=== PATIENT | male | born 1940 | race African-American/Black ===

== ENCOUNTER 2017-07-20 10:33 | Emergency (ER) | payer MEDICARE ==
--- NOTE | 2017-07-20 13:08 | CT ---
CT BRAIN: 07/20/2017 PROVIDED CLINICAL HISTORY: Headache, status post injury. COMPARISON: None. FINDINGS: The ventricular system appears normal in size and morphology. There is no evidence for intracranial hemorrhage or mass effect. There is mild right frontal scalp swelling without evidence for subjacent skull fracture. IMPRESSION: No evidence for intracranial hemorrhage or skull fracture. POS: OFF
--- NOTE | 2017-07-20 13:10 | CT ---
CT CERVICAL SPINE: 07/20/2017 PROVIDED CLINICAL HISTORY: Pain status post fall. FINDINGS: There is no evidence for fracture or traumatic subluxation. Advanced multilevel cervical degenerativ e changes are seen. No prevertebral soft tissue swelling is evident. The visualized lung apices are free of significant opacity. There is mild to moderate distention of the thoracic esophagus with ai r and articulate matter. Vascular calcifications are seen. IMPRESSION: 1. No evidence for fracture or traumatic subluxation. 2. Distention of the visualized thoracic esophagus by gas and articulate matter, potentially reflect ing gastroesophageal reflux or distal obstruction. Consider nonemergent esophagram, as clinically in dicated. POS: OFF
[2017-07-20] MEDS ORDERED: Acetaminophen 500 MG TAB ONE (13:37)
== END 2017-07-20 13:44 | disposition home or self-care (01) ==
LOC: ERS 10:33
DX: S09.90XA Unspecified injury of head, initial encounter (principal); S13.4XXA Sprain of ligaments of cervical spine, initial encounter; I10 Essential (primary) hypertension; E11.9 Type 2 diabetes mellitus without complications; F17.210 Nicotine dependence, cigarettes, uncomplicated; Z79.84 Long term (current) use of oral hypoglycemic drugs; Z79.899 Other long term (current) drug therapy; W19.XXXA Unspecified fall, initial encounter
CPT/HCPCS: 70450; 72125; 99406

== ENCOUNTER 2021-02-11 09:02 | Outpatient (CLI) | payer MEDICARE, MEDICAID | END 2021-02-11 09:03 | disposition home or self-care (01) | LOC: BICMRI 09:02 | PROVIDERS: ATTEND Internal Medicine Addiction Medicine | DX: M47.26 Other spondylosis with radiculopathy, lumbar region (principal) | CPT/HCPCS: 72148 ==

== ENCOUNTER 2021-04-06 12:11 | Inpatient (IN) | payer MEDICARE, OTHER ==
[2021-04-06] MEDS ORDERED: Iopamidol-370 76% 500 ML 1 ML ONE (13:25)
[2021-04-06 13:27] LABS: ALT (SGPT) 12 U/L (8-55); AST (SGOT) 16 U/L (5-34); Albumin 3.5 g/dL (3.4-4.8); Alkaline Phosphatase 130 U/L (40-110); Anion Gap 16 mmol/L (10-20); BUN (Urea Nitrogen) 19 mg/dL (8.4-25.7); Bilirubin, Total 0.9 mg/dL (0.2-1.2); Calc. Creatinine Clearance 0 mL/min (70-130); Calcium 9.5 mg/dL (7.8-10.44); Carbon Dioxide 23 mmol/L (23-31); Chloride 95 mmol/L (98-107); Globulin 3.5 g/dL (2.4-3.5); Potassium 3.5 mmol/L (3.5-5.1); Sodium 130 mmol/L (136-145)
[2021-04-06 13:34] LABS: Glucose 700 mg/dL (83-110)
[2021-04-06 13:48] LABS: CKMB 2.2 ng/mL (0-6.6)
[2021-04-06] MEDS ORDERED: Aspirin Chewable 81 MG TAB ONE (13:58)
[2021-04-06 14:01] LABS: #Lymphocytes 1.1 thou/uL (1.20-3.40); #Monocytes 0.7 thou/uL (0.11-0.59); #Neutrophils 5.3 thou/uL (1.40-6.50); %Basophils 0.2 % (0.0-1.0); %Eosinophils 0.5 % (0.0-10.0); %Lymphocytes 14.8 % (21.0-51.0); %Monocytes 9.5 % (0.0-10.0); Hemoglobin 6.1 g/dL (14.0-18.0); Hypochromia SLIGHT = 6-15 cells (100X) (0-5/hpf); MDiff Complete? YES; Mean Corpuscular HGB CONC 28.1 g/dL (32.0-36.0); Mean Corpuscular Hemoglobin 19.5 pg (27.0-31.0); Mean Corpuscular Volume 69.5 fL (78.0-98.0); Mean Platelet Volume 7.2 fL (7.4-10.4); Microcytosis MODERATE=15-30 cells (100X) (0-5/hpf); Ovalocytes SLIGHT = 2-5 cells (100X) (0-1/hpf); Platelet Count 208 thou/uL (130-400); Platelet Morphology Comment Appears Adequate; Polychromasia SLIGHT = 2-3 cells (100X) (0-2/hpf); RBC Distribution Width 19.7 % (11.5-14.5); Red Blood Cell (RBC) Count 3.12 mill/uL (4.70-6.10); White Blood Cell (WBC) Count 7.1 thou/uL (4.8-10.8)
[2021-04-06 14:43] LABS: Bilirubin Negative (Negative); Blood, Urine Negative (Negative); Clarity Clear (Clear); Glucose, Urine (Dipstick) Greater than 1000 mg/dL (Negative); Ketone, Urine Negative (Negative); Leukocyte 75 Leu/uL (Negative); Nitrite 1+ (Negative); Protein, Urine (Dipstick) Negative (Neg-Trace); RBC/HPF 0-3 HPF (0-3); Specific Gravity, Urine 1.025 (1.002-1.036); Squamous Epithelial 0-3 HPF (0-3); Urobilinogen Normal mg/dL (Less than 2); WBC/HPF 0-3 HPF (0-3)
[2021-04-06 14:44] LABS: Bacteria/HPF 1+ HPF (None Seen)
[2021-04-06] MEDS ORDERED: Acetaminophen 325 MG TAB PO PRN (15:58)
[2021-04-06] MEDS ORDERED: Nicotine 14 MG PATCH TD SCH (16:00)
[2021-04-06] MEDS ORDERED: Dextrose 5% in Water 1,000 ML IV PRN (16:05)
[2021-04-06] MEDS ORDERED: Dextrose 50% Abboject 50 ML SYRINGE SLOW IVP PRN (16:05)
[2021-04-06] MEDS ORDERED: Pantoprazole 40 MG VIAL IVP SCH (16:15)
[2021-04-06] MEDS ORDERED: Lactated Ringer's 1,000 ML IV SCH (16:45)
[2021-04-06] MEDS ORDERED: Clotrimazole 1 % Cream 30 GM TUBE TOP PRN ×2 (16:51→18:15)
[2021-04-06 16:58] LABS: Iron 14 ug/dL (65-175); Iron Binding Capacity, Total 451 mcg/dL (261-462)
[2021-04-06] MEDS ORDERED: Meropenem 1 GM in Sodium Chloride 0.9% 100 ML IVPB SCH ×2 (17:00→21:00)
[2021-04-06 17:12] LABS: INR-International Normal Ratio 1.2; PTT 28.8 sec (22.9-36.1); Prothrombin Time 15.3 sec (12.0-14.7)
[2021-04-06 17:15] LABS: Troponin I 0.232 ng/mL (< 0.028)
[2021-04-06] MEDS: HumaLOG 300 UNITS/3 ML VIAL SC PRN ×2 (17:51→22:41)
[2021-04-06 17:52] LABS: Hemoglobin A1c Greater than 14.0 % (4.0-6.0)
[2021-04-06 18:00] LABS: Cardiac Risk 2.1 (Less than 4.5)
[2021-04-06] MEDS ORDERED: Piperacillin/Tazobactam 2.25 GM in Sodium Chloride 0.9% 100 ML IVPB SCH (18:00)
[2021-04-06 19:40] LABS: Troponin I 0.234 ng/mL (< 0.028)
[2021-04-07 03:39] LABS: Anion Gap 10 mmol/L (10-20); BUN (Urea Nitrogen) 17 mg/dL (8.4-25.7); Calc. Creatinine Clearance 47 mL/min (70-130); Carbon Dioxide 25 mmol/L (23-31); Chloride 102 mmol/L (98-107); Glucose 279 mg/dL (83-110); Potassium 3.3 mmol/L (3.5-5.1); Sodium 134 mmol/L (136-145)
[2021-04-07 03:54] LABS: #Lymphocytes 1.3 thou/uL (1.20-3.40); #Monocytes 0.6 thou/uL (0.11-0.59); #Neutrophils 3.9 thou/uL (1.40-6.50); %Basophils 0.4 % (0.0-1.0); %Eosinophils 0.3 % (0.0-10.0); %Lymphocytes 21.7 % (21.0-51.0); %Neutrophils 66.6 % (42.0-75.0); Anisocytosis SLIGHT = 6-15 cells (100X) (0-5/hpf); Hemoglobin 7.6 g/dL (14.0-18.0); Hypochromia SLIGHT = 6-15 cells (100X) (0-5/hpf); Large Platelets SLIGHT; MDiff Complete? YES; Mean Corpuscular HGB CONC 29.8 g/dL (32.0-36.0); Mean Corpuscular Hemoglobin 21.9 pg (27.0-31.0); Mean Corpuscular Volume 73.6 fL (78.0-98.0); Mean Platelet Volume 7.1 fL (7.4-10.4); Microcytosis SLIGHT = 6-15 cells (100X) (0-5/hpf); Platelet Count 179 thou/uL (130-400); Platelet Morphology Comment Appears Adequate; RBC Distribution Width 20.7 % (11.5-14.5); Red Blood Cell (RBC) Count 3.44 mill/uL (4.70-6.10); White Blood Cell (WBC) Count 5.8 thou/uL (4.8-10.8)
[2021-04-07] MEDS ORDERED: Meropenem 500 MG in Sodium Chloride 0.9% 100 ML IVPB SCH (05:00)
[2021-04-07] MEDS ORDERED: Potassium Chloride 20 MEQ TAB PO SCH (06:15)
[2021-04-07] MEDS: HumaLOG 300 UNITS/3 ML VIAL SC PRN ×4 (06:21→20:45)
[2021-04-07 06:45] LABS: Magnesium 1.9 mg/dL (1.6-2.6); Phosphorus 2.8 mg/dL (2.3-4.7)
[2021-04-07] MEDS: Atorvastatin Calcium 10 MG TAB PO SCH (08:35)
[2021-04-07] MEDS: Pantoprazole 40 MG VIAL IVP SCH ×2 (08:35→20:45)
[2021-04-07] MEDS: metFORMIN 500 MG TAB PO SCH ×2 (08:35→16:32)
[2021-04-07] MEDS ORDERED: FLU VACC QS2021-22(65YR UP)/PF 240 MCG/0.7 ML SYRINGE IM ONE (09:00)
[2021-04-07] MEDS ORDERED: hydrOXYzine 25 MG TAB PO PRN (09:01)
[2021-04-07 11:07] LABS: SARS-CoV-2 PCR by NAA Not Detected (NotDetected)
[2021-04-07] MEDS ORDERED: Iopamidol 370 76% 100 ML VIAL ONE (13:49)
[2021-04-07] MEDS: Lantus 1000 UNITS/10 ML VIAL SC SCH (14:24)
[2021-04-07 14:47] LABS: Anion Gap 12 mmol/L (10-20); BUN (Urea Nitrogen) 15 mg/dL (8.4-25.7); Calc. Creatinine Clearance 46 mL/min (70-130); Calcium 8.8 mg/dL (7.8-10.44); Carbon Dioxide 23 mmol/L (23-31); Chloride 103 mmol/L (98-107); Glucose 295 mg/dL (83-110); Potassium 3.7 mmol/L (3.5-5.1); Sodium 134 mmol/L (136-145)
[2021-04-07] MEDS ORDERED: Ferrous Gluconate 324 MG TAB PO SCH (16:00)
[2021-04-07] MEDS: Ferrous Gluconate 324 MG TAB PO SCH (16:08)
[2021-04-07] MEDS: Meropenem 1 GM in Sodium Chloride 0.9% 100 ML IVPB SCH (17:31)
[2021-04-07] MEDS: Nitroglycerin 2% Ointment 1 INCH/1 GM Packet TOP SCH ×2 (17:46→23:56)
[2021-04-08 04:58] LABS: Hemoglobin 7.4 g/dL (14.0-18.0); Mean Corpuscular HGB CONC 29.7 g/dL (32.0-36.0); Mean Corpuscular Hemoglobin 22.1 pg (27.0-31.0); Mean Corpuscular Volume 74.5 fL (78.0-98.0); Platelet Count 166 thou/uL (130-400); RBC Distribution Width 20.3 % (11.5-14.5); Red Blood Cell (RBC) Count 3.35 mill/uL (4.70-6.10); White Blood Cell (WBC) Count 6.4 thou/uL (4.8-10.8)
[2021-04-08 05:04] LABS: Anion Gap 12 mmol/L (10-20); BUN (Urea Nitrogen) 15 mg/dL (8.4-25.7); Calc. Creatinine Clearance 47 mL/min (70-130); Calcium 8.3 mg/dL (7.8-10.44); Carbon Dioxide 23 mmol/L (23-31); Chloride 103 mmol/L (98-107); Glucose 241 mg/dL (83-110); Potassium 3.8 mmol/L (3.5-5.1); Sodium 134 mmol/L (136-145)
[2021-04-08] MEDS: Nitroglycerin 2% Ointment 1 INCH/1 GM Packet TOP SCH ×2 (06:11→12:04)
[2021-04-08] MEDS: Meropenem 1 GM in Sodium Chloride 0.9% 100 ML IVPB SCH (06:11)
[2021-04-08] MEDS: HumaLOG 300 UNITS/3 ML VIAL SC PRN ×2 (06:25→17:06)
[2021-04-08 06:35] LABS: #Eosinphils 0.1 thou/uL (0.0-0.7); #Lymphocytes 1.1 thou/uL (1.20-3.40); #Monocytes 0.8 thou/uL (0.11-0.59); #Neutrophils 4.6 thou/uL (1.40-6.50); %Basophils 0.3 % (0.0-1.0); %Lymphocytes 16.3 % (21.0-51.0); %Monocytes 11.7 % (0.0-10.0); %Neutrophils 70.7 % (42.0-75.0)
[2021-04-08 06:36] LABS: Anisocytosis SLIGHT = 6-15 cells (100X) (0-5/hpf); MDiff Complete? YES
[2021-04-08] MEDS ORDERED: Ketamine 50 MG/ML (10ML VIAL) ONE (09:01)
[2021-04-08] MEDS ORDERED: Lidocaine 1% PF 5 ML VIAL ONE (09:10)
[2021-04-08] MEDS ORDERED: PROPOFOL 200 MG/20 ML VIAL ONE (09:10)
[2021-04-08] MEDS: Atorvastatin Calcium 10 MG TAB PO SCH (10:02)
[2021-04-08] MEDS: metFORMIN 500 MG TAB PO SCH ×2 (10:02→17:06)
[2021-04-08] MEDS: Pantoprazole 40 MG VIAL IVP SCH ×2 (10:03→20:33)
[2021-04-08] MEDS: Lantus 1000 UNITS/10 ML VIAL SC SCH ×2 (10:10→20:34)
[2021-04-08] MEDS ORDERED: Nitroglycerin 2% Ointment 1 INCH/1 GM Packet TOP PRN (12:53)
[2021-04-08] MEDS ORDERED: Iron Sucrose Complex 200 MG in Sodium Chloride 0.9% 100 ML IVPB SCH (14:00)
[2021-04-08] MEDS ORDERED: Cefdinir 300 MG CAP PO SCH (14:00)
[2021-04-08] MEDS ORDERED: Iron, Sodium Ferric Gluconate 250 MG in Sodium Chloride 0.9% 100 ML IVPB SCH (14:00)
[2021-04-08] MEDS ORDERED: Iron, Sodium Ferric Gluconate 250 MG in Sodium Chloride 0.9% 250 ML 250 ML IVPB SCH (14:15)
[2021-04-08] MEDS: Cefdinir 300 MG CAP PO SCH (20:33)
[2021-04-09] MEDS ORDERED: Furosemide 20 MG/2 ML VIAL SLOW IVP SCH (00:15)
[2021-04-09 04:55] LABS: Mean Corpuscular HGB CONC 29.3 g/dL (32.0-36.0); Mean Corpuscular Hemoglobin 21.8 pg (27.0-31.0); Mean Corpuscular Volume 74.3 fL (78.0-98.0); Mean Platelet Volume 6.5 fL (7.4-10.4); Platelet Count 167 thou/uL (130-400); Red Blood Cell (RBC) Count 3.68 mill/uL (4.70-6.10); White Blood Cell (WBC) Count 7.2 thou/uL (4.8-10.8)
[2021-04-09 05:12] LABS: Anion Gap 13 mmol/L (10-20); BUN (Urea Nitrogen) 13 mg/dL (8.4-25.7); Calc. Creatinine Clearance 55 mL/min (70-130); Calcium 8.3 mg/dL (7.8-10.44); Carbon Dioxide 24 mmol/L (23-31); Chloride 103 mmol/L (98-107); Glucose 237 mg/dL (83-110); Potassium 3.8 mmol/L (3.5-5.1); Sodium 136 mmol/L (136-145)
[2021-04-09 05:26] LABS: #Eosinphils 0.1 thou/uL (0.0-0.7); #Lymphocytes 1.2 thou/uL (1.20-3.40); #Monocytes 0.9 thou/uL (0.11-0.59); #Neutrophils 5.1 thou/uL (1.40-6.50); %Basophils 0.1 % (0.0-1.0); %Lymphocytes 15.9 % (21.0-51.0); %Monocytes 12.5 % (0.0-10.0); %Neutrophils 70.5 % (42.0-75.0); Anisocytosis SLIGHT = 6-15 cells (100X) (0-5/hpf); Hypochromia SLIGHT = 6-15 cells (100X) (0-5/hpf); MDiff Complete? YES; Microcytosis SLIGHT = 6-15 cells (100X) (0-5/hpf)
[2021-04-09] MEDS: HumaLOG 300 UNITS/3 ML VIAL SC PRN ×3 (06:03→20:39)
[2021-04-09] MEDS: Aspirin 81 mg Enteric Coated Tablet PO SCH (08:40)
[2021-04-09] MEDS: Cefdinir 300 MG CAP PO SCH ×2 (08:40→20:38)
[2021-04-09] MEDS: Atorvastatin Calcium 10 MG TAB PO SCH (08:41)
[2021-04-09] MEDS: Pantoprazole 40 MG VIAL IVP SCH ×2 (08:41→20:38)
[2021-04-09] MEDS: metFORMIN 500 MG TAB PO SCH ×2 (08:41→16:18)
[2021-04-09] MEDS: Carvedilol 3.125 MG TAB PO SCH ×2 (08:41→16:18)
[2021-04-09] MEDS: Ferrous Gluconate 324 MG TAB PO SCH (11:17)
[2021-04-09 13:16] VITALS: BMI 21.4
[2021-04-09] MEDS: Lantus 1000 UNITS/10 ML VIAL SC SCH (20:39)
[2021-04-10 04:28] LABS: #Eosinphils 0.1 thou/uL (0.0-0.7); #Lymphocytes 1.4 thou/uL (1.20-3.40); #Monocytes 0.7 thou/uL (0.11-0.59); #Neutrophils 3.8 thou/uL (1.40-6.50); %Basophils 0.8 % (0.0-1.0); %Eosinophils 1.6 % (0.0-10.0); %Lymphocytes 22.5 % (21.0-51.0); %Monocytes 11.7 % (0.0-10.0); %Neutrophils 63.4 % (42.0-75.0); Hemoglobin 7.3 g/dL (14.0-18.0); Mean Corpuscular HGB CONC 29.3 g/dL (32.0-36.0); Mean Corpuscular Hemoglobin 21.9 pg (27.0-31.0); Mean Corpuscular Volume 74.8 fL (78.0-98.0); Mean Platelet Volume 6.5 fL (7.4-10.4); Platelet Count 151 thou/uL (130-400); RBC Distribution Width 21.1 % (11.5-14.5); Red Blood Cell (RBC) Count 3.34 mill/uL (4.70-6.10); White Blood Cell (WBC) Count 6.1 thou/uL (4.8-10.8)
[2021-04-10 04:46] LABS: Anion Gap 9 mmol/L (10-20); BUN (Urea Nitrogen) 10 mg/dL (8.4-25.7); Calc. Creatinine Clearance 52 mL/min (70-130); Calcium 8.7 mg/dL (7.8-10.44); Carbon Dioxide 25 mmol/L (23-31); Chloride 105 mmol/L (98-107); Glucose 147 mg/dL (83-110); Potassium 3.4 mmol/L (3.5-5.1); Sodium 136 mmol/L (136-145)
[2021-04-10] MEDS ORDERED: Potassium Chloride 20 MEQ TAB PO SCH (06:30)
[2021-04-10 06:46] LABS: Magnesium 1.8 mg/dL (1.6-2.6)
[2021-04-10] MEDS: Aspirin 81 mg Enteric Coated Tablet PO SCH (09:20)
[2021-04-10] MEDS: Cefdinir 300 MG CAP PO SCH ×2 (09:20→21:00)
[2021-04-10] MEDS: metFORMIN 500 MG TAB PO SCH ×2 (09:20→18:32)
[2021-04-10] MEDS: Carvedilol 3.125 MG TAB PO SCH ×2 (09:20→18:32)
[2021-04-10] MEDS: Atorvastatin Calcium 10 MG TAB PO SCH (09:21)
[2021-04-10] MEDS: Pantoprazole 40 MG VIAL IVP SCH ×2 (09:21→21:04)
[2021-04-10] MEDS ORDERED: Furosemide 20 MG/2 ML VIAL SLOW IVP SCH (11:30)
[2021-04-10] MEDS: HumaLOG 300 UNITS/3 ML VIAL SC PRN ×2 (11:49→18:33)
[2021-04-10] MEDS: Lantus 1000 UNITS/10 ML VIAL SC SCH (21:04)
[2021-04-11 05:06] LABS: Anion Gap 12 mmol/L (10-20); BUN (Urea Nitrogen) 14 mg/dL (8.4-25.7); Calc. Creatinine Clearance 57 mL/min (70-130); Calcium 8.7 mg/dL (7.8-10.44); Carbon Dioxide 23 mmol/L (23-31); Chloride 104 mmol/L (98-107); Glucose 170 mg/dL (83-110); Potassium 4.1 mmol/L (3.5-5.1); Sodium 135 mmol/L (136-145)
[2021-04-11 05:53] LABS: Anisocytosis MODERATE=16-30 cells (100X) (0-5/hpf); Burr Cells SLIGHT = 2-5 cells (100X) (0-1/hpf); Eosinophils 2 % (0-10); Hemoglobin 7.5 g/dL (14.0-18.0); Hypochromia MODERATE=16-30 cells (100X) (0-5/hpf); Lymphocytes 18 % (21-51); MDiff Complete? YES; Mean Corpuscular HGB CONC 29.9 g/dL (32.0-36.0); Mean Corpuscular Hemoglobin 22.6 pg (27.0-31.0); Mean Corpuscular Volume 75.7 fL (78.0-98.0); Mean Platelet Volume 9.3 fL (7.4-10.4); Monocytes 7 % (0-10); Neutrophil 72 % (42-75); Platelet Count 162 thou/uL (130-400); Platelet Morphology Comment Appears Adequate; Polychromasia MODERATE = 3-4 cells (100X) (0-2/hpf); RBC Distribution Width 22.1 % (11.5-14.5); Red Blood Cell (RBC) Count 3.33 mill/uL (4.70-6.10); Schistocytes SLIGHT = 2-5 cells (100X) (0-1/hpf); Target Cells SLIGHT = 2-5 cells (100X) (0-1/hpf); White Blood Cell (WBC) Count 6.3 thou/uL (4.8-10.8)
[2021-04-11] MEDS: Pantoprazole 40 MG VIAL IVP SCH (08:39)
[2021-04-11] MEDS: Carvedilol 3.125 MG TAB PO SCH (08:39)
[2021-04-11] MEDS: metFORMIN 500 MG TAB PO SCH (08:40)
[2021-04-11] MEDS: Cefdinir 300 MG CAP PO SCH (08:40)
[2021-04-11] MEDS: Aspirin 81 mg Enteric Coated Tablet PO SCH (08:40)
[2021-04-11] MEDS: Atorvastatin Calcium 10 MG TAB PO SCH (08:40)
[2021-04-11] MEDS ORDERED: Furosemide 20 MG TAB PO SCH (09:00)
[2021-04-11] MEDS: Ferrous Gluconate 324 MG TAB PO SCH (12:05)
[2021-04-11 15:52] VITALS: BP 111/65; TEMP 98.1
== END 2021-04-11 16:31 | disposition home health service (06) | DRG 377 ==
LOC: ERS 12:11 → ERHOLD 14:13 → 2NO 15:47
PROVIDERS: ADMIT Family Medicine; ATTEND Family Medicine
PROC: 30233N1 Transfusion of Nonautologous Red Blood Cells into Peripheral Vein, Percutaneous Approach (ICD-10-PCS; 2021-04-06)
PROC: 0DJ08ZZ Inspection of Upper Intestinal Tract, Via Natural or Artificial Opening Endoscopic (ICD-10-PCS; principal; 2021-04-08)
DX: K31.811 Angiodysplasia of stomach and duodenum with bleeding (principal); J96.01 Acute respiratory failure with hypoxia; I21.4 Non-ST elevation (NSTEMI) myocardial infarction; I50.21 Acute systolic (congestive) heart failure; N39.0 Urinary tract infection, site not specified; Z20.822 Contact with and (suspected) exposure to COVID-19; I11.0 Hypertensive heart disease with heart failure; E11.9 Type 2 diabetes mellitus without complications; N48.1 Balanitis; D50.0 Iron deficiency anemia secondary to blood loss (chronic); F41.0 Panic disorder [episodic paroxysmal anxiety]; R16.0 Hepatomegaly, not elsewhere classified; R91.8 Other nonspecific abnormal finding of lung field; F17.210 Nicotine dependence, cigarettes, uncomplicated; R59.0 Localized enlarged lymph nodes; E11.65 Type 2 diabetes mellitus with hyperglycemia; E78.5 Hyperlipidemia, unspecified; E87.6 Hypokalemia; E83.42 Hypomagnesemia; Z88.7 Allergy status to serum and vaccine; Z79.84 Long term (current) use of oral hypoglycemic drugs
CPT/HCPCS: 36415; 36416; 36430; 71045; 71275; 74170; 74174; 74183; 80048; 80053; 80061; 81003; 81015; 82010; 82553; 82728; 83036; 83540; 83550; 83690; 83735; 84100; 84145; 84443; 84484; 85025; 85610; 85730; 86850; 86900; 86901; 87077; 87086; 87186; 93005; 93306; 94640; 94760; C9113; J1815; J1940; J2185; J2704; J2916; J3475; J3490; J7050; J7120; J7620; P9016; Q9967; U0003; U0005

== ENCOUNTER 2021-05-21 14:37 | Outpatient (CLI) | payer MEDICARE, OTHER ==
[2021-05-22 19:32] LABS: SARS-CoV-2 PCR by NAA Not Detected (NotDetected)
== END 2021-05-21 14:38 | disposition home or self-care (01) ==
LOC: LABBT 14:37
PROVIDERS: ATTEND Internal Medicine
DX: Z01.812 Encounter for preprocedural laboratory examination (principal); Z20.822 Contact with and (suspected) exposure to COVID-19
CPT/HCPCS: U0003; U0005

== ENCOUNTER 2021-05-26 08:43 | Day surgery (SDC) | payer MEDICARE, MEDICAID ==
[2021-05-22 14:12] VITALS: BMI 21.0
[2021-05-26] MEDS ORDERED: Albuterol Sulfate 2.5 mg/3 ml Neb ONE ×2 (11:14→13:03)
[2021-05-26] MEDS ORDERED: PROPOFOL 200 MG/20 ML VIAL ONE (12:15)
[2021-05-26] MEDS ORDERED: Lidocaine 1% PF 5 ML VIAL ONE (12:15)
== END 2021-05-26 12:46 | disposition home or self-care (01) ==
LOC: SDC 08:43
PROVIDERS: ATTEND Internal Medicine
PROC: 0DJD8ZZ Inspection of Lower Intestinal Tract, Via Natural or Artificial Opening Endoscopic (ICD-10-PCS; principal; 2021-05-26)
DX: D50.9 Iron deficiency anemia, unspecified (principal); Z79.4 Long term (current) use of insulin; Z79.82 Long term (current) use of aspirin; Z79.84 Long term (current) use of oral hypoglycemic drugs; Z79.899 Other long term (current) drug therapy; Z88.7 Allergy status to serum and vaccine
CPT/HCPCS: 36416; J2704; J7611

== ENCOUNTER 2021-07-17 09:11 | Day surgery (SDC) | payer MEDICARE, OTHER ==
[~2021-07-17 09:11] MED LIST: Acetaminophen 500 MG TAB PO SCH; Iron Sucrose Complex 500 MG in Sodium Chloride 0.9% 250 ML 250 ML IVPB SCH
[2021-07-17] MEDS ORDERED: Acetaminophen 500 MG TAB ONE ×2 (09:41)
[2021-07-17 10:24] VITALS: TEMP 97.7
[2021-07-17 11:49] VITALS: BP 116/56
== END 2021-07-17 11:50 | disposition home or self-care (01) ==
LOC: ONC/OP 09:11
PROVIDERS: ATTEND Student in an Organized Health Care Education/Training Program
DX: K90.89 Other intestinal malabsorption (principal); Z88.7 Allergy status to serum and vaccine
CPT/HCPCS: 96365; J1756; J7050

== ENCOUNTER 2021-10-12 12:57 | Emergency (ER) | payer MEDICARE, OTHER ==
[2021-10-12 13:48] LABS: Hemoglobin 7.4 g/dL (14.0-18.0); Mean Corpuscular HGB CONC 29.4 g/dL (32.0-36.0); Mean Corpuscular Hemoglobin 25.5 pg (27.0-31.0); Mean Corpuscular Volume 86.8 fL (78.0-98.0); Mean Platelet Volume 8.2 fL (7.4-10.4); Platelet Count 202 thou/uL (130-400); Red Blood Cell (RBC) Count 2.91 mill/uL (4.70-6.10)
[2021-10-12 13:49] LABS: #Eosinphils 0.1 thou/uL (0.0-0.7); #Lymphocytes 1.2 thou/uL (1.20-3.40); #Monocytes 0.6 thou/uL (0.11-0.59); #Neutrophils 4.1 thou/uL (1.40-6.50); %Basophils 0.7 % (0.0-1.0); %Eosinophils 1.8 % (0.0-10.0); %Lymphocytes 19.5 % (21.0-51.0); %Monocytes 9.9 % (0.0-10.0); %Neutrophils 68.2 % (42.0-75.0)
[2021-10-12 14:00] LABS: ALT (SGPT) 9 U/L (8-55); AST (SGOT) 14 U/L (5-34); Albumin 3.5 g/dL (3.4-4.8); Alkaline Phosphatase 92 U/L (40-110); Anion Gap 12 mmol/L (10-20); BUN (Urea Nitrogen) 32 mg/dL (8.4-25.7); Bilirubin, Total 0.5 mg/dL (0.2-1.2); Calc. Creatinine Clearance 0 mL/min (70-130); Calcium 8.8 mg/dL (7.8-10.44); Carbon Dioxide 24 mmol/L (23-31); Chloride 106 mmol/L (98-107); Globulin 3.1 g/dL (2.4-3.5); Glucose 212 mg/dL (83-110); Protein, Total 6.6 g/dL (5.8-8.1); Sodium 138 mmol/L (136-145)
[2021-10-12 14:11] LABS: Hypochromia SLIGHT = 6-15 cells (100X) (0-5/hpf); MDiff Complete? YES; Platelet Morphology Comment Appears Adequate; Polychromasia SLIGHT = 2-3 cells (100X) (0-2/hpf)
== END 2021-10-12 18:03 | disposition home or self-care (01) ==
LOC: ERS 12:57
DX: D64.9 Anemia, unspecified (principal); K92.2 Gastrointestinal hemorrhage, unspecified; E11.9 Type 2 diabetes mellitus without complications; E78.5 Hyperlipidemia, unspecified; I10 Essential (primary) hypertension; F17.210 Nicotine dependence, cigarettes, uncomplicated
CPT/HCPCS: 36430; 80053; 85025; 86850; 86900; 86901; 86920; P9016; 36415; 82274; 99284

== ENCOUNTER 2022-02-04 07:53 | Outpatient (CLI) | payer OTHER ==
[2022-02-04] MEDS ORDERED: Magnevist 469MG/ML 20 ML VIAL ONE (09:08)
== END 2022-02-04 07:54 | disposition home or self-care (01) ==
LOC: BICMRI 07:53
PROVIDERS: ATTEND Student in an Organized Health Care Education/Training Program
DX: K76.89 Other specified diseases of liver (principal)
CPT/HCPCS: 74183; 82565; A9579

== ENCOUNTER 2022-09-11 07:06 | Inpatient (IN) | payer OTHER ==
[2022-09-11] MEDS ORDERED: Pantoprazole 40 MG VIAL ONE (07:55)
[2022-09-11 08:12] LABS: #Eosinphils 0.1 thou/uL (0.0-0.7); #Monocytes 0.7 thou/uL (0.11-0.59); #Neutrophils 4.5 thou/uL (1.40-6.50); %Basophils 0.7 % (0.0-1.0); %Eosinophils 1.1 % (0.0-10.0); %Lymphocytes 12.6 % (21.0-51.0); %Monocytes 10.8 % (0.0-10.0); %Neutrophils 74.3 % (42.0-75.0); Hemoglobin 4.4 g/dL (14.0-18.0); Mean Corpuscular HGB CONC 25.1 g/dL (32.0-36.0); Mean Corpuscular Hemoglobin 17.1 pg (27.0-31.0); Mean Corpuscular Volume 67.8 fl (78.0-98.0); Mean Platelet Volume 9.7 fL (7.4-10.4); Platelet Count 208 10x3/uL (130-400); RBC Distribution Width 20.9 % (11.5-14.5); Red Blood Cell (RBC) Count 2.58 mill/uL (4.70-6.10); White Blood Cell (WBC) Count 6.1 10x3/uL (4.8-10.8)
[2022-09-11 08:55] LABS: Anisocytosis MODERATE=16-30 cells HPF (0-5); CellaVision Operator ID LAB.NR; Hypochromia MODERATE=16-30 cells HPF (0-5); Large Platelets 18.1 % (0-5); Macrocytosis SLIGHT = 6-15 cells HPF (0-5); Platelet Morphology Comment Platelets Normal; Polychromasia SLIGHT = 2-3 cells HPF (0-2)
[2022-09-11 08:56] LABS: ALT (SGPT) 7 U/L (8-55); AST (SGOT) 10 U/L (5-34); Albumin 3.7 g/dL (3.4-4.8); Alkaline Phosphatase 63 U/L (40-110); Anion Gap 12 mmol/L (10-20); BUN (Urea Nitrogen) 21 mg/dL (8.4-25.7); Bilirubin, Total 0.6 mg/dL (0.2-1.2); Calc. Creatinine Clearance 0 mL/min (70-130); Calcium 8.6 mg/dL (7.8-10.44); Carbon Dioxide 17 mmol/L (23-31); Chloride 110 mmol/L (98-107); Estimated GFR 58; Globulin 3.3 g/dL (2.4-3.5); Glucose 164 mg/dL (83-110); Potassium 4.3 mmol/L (3.5-5.1); Sodium 135 mmol/L (136-145)
[2022-09-11] MEDS ORDERED: Nicotine 14 MG PATCH TD PRN (11:00)
[2022-09-11 13:48] VITALS: BMI 23.8
[2022-09-11] MEDS ORDERED: Polyethylene Glycol 3350 17 GM Packet PO PRN (15:08)
[2022-09-11] MEDS ORDERED: Dextrose 50% Abboject 50 ML SYRINGE SLOW IVP PRN (15:10)
[2022-09-11] MEDS ORDERED: HumaLOG 300 UNITS/3 ML VIAL SC PRN ×2 (15:10)
[2022-09-11] MEDS ORDERED: Dextrose 5% in Water 1,000 ML IV PRN (15:10)
[2022-09-11 15:23] LABS: Hemoglobin 6.2 g/dL (14.0-18.0); Mean Corpuscular HGB CONC 27.9 g/dL (32.0-36.0); Mean Corpuscular Hemoglobin 19.5 pg (27.0-31.0); Mean Corpuscular Volume 69.8 fl (78.0-98.0); Mean Platelet Volume 10.1 fL (7.4-10.4); Platelet Count 205 10x3/uL (130-400); RBC Distribution Width 22.5 % (11.5-14.5); Red Blood Cell (RBC) Count 3.18 mill/uL (4.70-6.10); White Blood Cell (WBC) Count 6.4 10x3/uL (4.8-10.8)
[2022-09-11] MEDS: Carvedilol 3.125 MG TAB PO SCH (17:40)
[2022-09-11] MEDS ORDERED: Furosemide 20 MG/2 ML VIAL SLOW IVP SCH (17:45)
[2022-09-11] MEDS: Ezetimibe 10 MG TAB PO SCH (20:21)
[2022-09-11] MEDS: Atorvastatin Calcium 10 MG TAB PO SCH (20:22)
[2022-09-11] MEDS: Pantoprazole 80 MG, Admixture Fee 1 EACH in Sodium Chloride 0.9% 100 ML IVPB SCH (20:50)
[2022-09-11 23:02] LABS: Hemoglobin 7.7 g/dL (14.0-18.0)
[2022-09-12 04:47] LABS: #Basophils 0.1 thou/uL (0.0-0.2); #Eosinphils 0.1 thou/uL (0.0-0.7); #Monocytes 0.8 thou/uL (0.11-0.59); #Neutrophils 5.4 thou/uL (1.40-6.50); %Basophils 0.7 % (0.0-1.0); %Eosinophils 1.8 % (0.0-10.0); %Lymphocytes 12.9 % (21.0-51.0); %Monocytes 10.9 % (0.0-10.0); %Neutrophils 73.2 % (42.0-75.0); Hemoglobin 7.3 g/dL (14.0-18.0); Mean Corpuscular HGB CONC 28.4 g/dL (32.0-36.0); Mean Corpuscular Hemoglobin 20.6 pg (27.0-31.0); Mean Platelet Volume 10.4 fL (7.4-10.4); Platelet Count 193 10x3/uL (130-400); RBC Distribution Width 23.7 % (11.5-14.5); Red Blood Cell (RBC) Count 3.55 mill/uL (4.70-6.10); White Blood Cell (WBC) Count 7.3 10x3/uL (4.8-10.8)
[2022-09-12 04:54] LABS: Mean Corpuscular Volume 72.4 fl (78.0-98.0)
[2022-09-12 05:26] LABS: ALT (SGPT) 8 U/L (8-55); AST (SGOT) 11 U/L (5-34); Albumin 3.6 g/dL (3.4-4.8); Alkaline Phosphatase 60 U/L (40-110); Anion Gap 12 mmol/L (10-20); BUN (Urea Nitrogen) 16 mg/dL (8.4-25.7); Bilirubin, Total 1.5 mg/dL (0.2-1.2); Calc. Creatinine Clearance 52 mL/min (70-130); Calcium 8.5 mg/dL (7.8-10.44); Carbon Dioxide 19 mmol/L (23-31); Chloride 110 mmol/L (98-107); Estimated GFR 63; Globulin 3.1 g/dL (2.4-3.5); Glucose 175 mg/dL (83-110); Potassium 3.7 mmol/L (3.5-5.1); Protein, Total 6.7 g/dL (5.8-8.1); Sodium 137 mmol/L (136-145)
[2022-09-12] MEDS ORDERED: Furosemide 20 MG TAB PO SCH (09:45)
[2022-09-12 10:50] LABS: #Basophils 0.1 thou/uL (0.0-0.2); #Eosinphils 0.2 thou/uL (0.0-0.7); #Monocytes 0.9 thou/uL (0.11-0.59); %Basophils 0.7 % (0.0-1.0); %Eosinophils 2.3 % (0.0-10.0); %Lymphocytes 12.7 % (21.0-51.0); %Monocytes 12.4 % (0.0-10.0); %Neutrophils 71.1 % (42.0-75.0); Hemoglobin 7.4 g/dL (14.0-18.0); Mean Corpuscular HGB CONC 30.2 g/dL (32.0-36.0); Mean Corpuscular Hemoglobin 21.1 pg (27.0-31.0); RBC Distribution Width 23.2 % (11.5-14.5); White Blood Cell (WBC) Count 7.1 10x3/uL (4.8-10.8)
[2022-09-12 11:07] LABS: Platelet Count 57 10x3/uL (130-400)
[2022-09-12] MEDS ORDERED: Midazolam HCl 2 mg/2 ml Vial ONE (11:17)
[2022-09-12] MEDS ORDERED: Ketamine In 0.9 % NaCl 50 MG/5 ML SYRINGE ONE (11:18)
[2022-09-12] MEDS ORDERED: Ondansetron HCl/PF 4 MG/2 ML Vial IVP PRN (11:21)
[2022-09-12] MEDS ORDERED: PROPOFOL 200 MG/20 ML VIAL ONE (11:28)
[2022-09-12] MEDS: Potassium Chloride 20 MEQ TAB PO SCH (13:31)
[2022-09-12] MEDS: Carvedilol 3.125 MG TAB PO SCH ×2 (13:31→17:41)
[2022-09-12] MEDS: Empagliflozin 10 MG TAB PO SCH (13:32)
[2022-09-12 15:48] LABS: Iron 25 ug/dL (65-175); Iron Binding Capacity, Total 409 mcg/dL (261-462)
[2022-09-12 16:40] LABS: Hemoglobin 6.5 g/dL (14.0-18.0)
[2022-09-12] MEDS ORDERED: Amlodipine 5 MG TAB PO SCH (16:44)
[2022-09-12] MEDS: Atorvastatin Calcium 10 MG TAB PO SCH (21:28)
[2022-09-12] MEDS: Ezetimibe 10 MG TAB PO SCH (21:29)
[2022-09-12 21:51] LABS: Hemoglobin 8.5 g/dL (14.0-18.0)
[2022-09-12 21:53] LABS: Platelet Count 193 10x3/uL (130-400)
[2022-09-13 04:56] LABS: Hemoglobin 8.4 g/dL (14.0-18.0); Mean Corpuscular Hemoglobin 21.7 pg (27.0-31.0); Mean Platelet Volume 10.5 fL (7.4-10.4); Platelet Count 196 10x3/uL (130-400); Red Blood Cell (RBC) Count 3.87 mill/uL (4.70-6.10); White Blood Cell (WBC) Count 8.6 10x3/uL (4.8-10.8)
[2022-09-13 05:07] LABS: Delete Auto Diff?? YES; Manual Diff?? YES; Mean Corpuscular Volume 74.9 fl (78.0-98.0)
[2022-09-13] MEDS: Pantoprazole 80 MG, Admixture Fee 1 EACH in Sodium Chloride 0.9% 100 ML IVPB SCH (05:08)
[2022-09-13 05:37] LABS: ALT (SGPT) 8 U/L (8-55); AST (SGOT) 14 U/L (5-34); Albumin 3.6 g/dL (3.4-4.8); Alkaline Phosphatase 64 U/L (40-110); Anion Gap 11 mmol/L (10-20); BUN (Urea Nitrogen) 15 mg/dL (8.4-25.7); Bilirubin, Total 1.9 mg/dL (0.2-1.2); Calc. Creatinine Clearance 51 mL/min (70-130); Calcium 8.6 mg/dL (7.8-10.44); Carbon Dioxide 19 mmol/L (23-31); Chloride 110 mmol/L (98-107); Estimated GFR 60; Globulin 3.1 g/dL (2.4-3.5); Glucose 159 mg/dL (83-110); Potassium 3.8 mmol/L (3.5-5.1); Protein, Total 6.7 g/dL (5.8-8.1); Sodium 136 mmol/L (136-145)
[2022-09-13 05:38] LABS: Anisocytosis SLIGHT = 6-15 cells HPF (0-5); Band 6 % (5-11); CellaVision Operator ID LAB.CLH1; Hypochromia MODERATE=16-30 cells HPF (0-5); Lymphocytes 10 % (21-51); Macrocytosis SLIGHT = 6-15 cells HPF (0-5); Monocytes 6 % (0-10); Neutrophil 77 % (42-75); Platelet Morphology Comment Platelets Normal; Polychromasia MODERATE = 3-4 cells HPF (0-2); Target Cells SLIGHT = 2-5 cells HPF (0-1); Total Cell Count 101
[2022-09-13] MEDS ORDERED: Ferrous Sulfate 325 MG TAB PO SCH (08:00)
[2022-09-13] MEDS: Empagliflozin 10 MG TAB PO SCH (08:23)
[2022-09-13] MEDS: Carvedilol 3.125 MG TAB PO SCH (08:23)
[2022-09-13] MEDS: Potassium Chloride 20 MEQ TAB PO SCH (08:23)
[2022-09-13] MEDS ORDERED: Furosemide 20 MG TAB PO SCH (09:00)
[2022-09-13] MEDS ORDERED: Amlodipine 5 MG TAB PO SCH (09:00)
[2022-09-13 12:20] VITALS: BP 163/70; TEMP 98.3
== END 2022-09-13 16:00 | disposition home or self-care (01) | DRG 811 ==
LOC: ERS 07:06 → 2NO 08:06
PROVIDERS: ADMIT Student in an Organized Health Care Education/Training Program; ATTEND Student in an Organized Health Care Education/Training Program
PROC: 30233L1 Transfusion of Nonautologous Fresh Plasma into Peripheral Vein, Percutaneous Approach (ICD-10-PCS; principal; 2022-09-11)
PROC: 30233N1 Transfusion of Nonautologous Red Blood Cells into Peripheral Vein, Percutaneous Approach (ICD-10-PCS; 2022-09-11)
PROC: 0W3P8ZZ Control Bleeding in Gastrointestinal Tract, Via Natural or Artificial Opening Endoscopic (ICD-10-PCS; 2022-09-12)
DX: D62 Acute posthemorrhagic anemia (principal); K31.811 Angiodysplasia of stomach and duodenum with bleeding; I13.0 Hypertensive heart and chronic kidney disease with heart failure and stage 1 through stage 4 chronic kidney disease, or unspecified chronic kidney disease; I50.22 Chronic systolic (congestive) heart failure; E78.5 Hyperlipidemia, unspecified; F17.210 Nicotine dependence, cigarettes, uncomplicated; E11.40 Type 2 diabetes mellitus with diabetic neuropathy, unspecified; D50.9 Iron deficiency anemia, unspecified; D63.1 Anemia in chronic kidney disease; E11.22 Type 2 diabetes mellitus with diabetic chronic kidney disease; N18.32 Chronic kidney disease, stage 3b; Z88.7 Allergy status to serum and vaccine; Z79.899 Other long term (current) drug therapy; Z79.82 Long term (current) use of aspirin; Z79.4 Long term (current) use of insulin
CPT/HCPCS: 36415; 36416; 36430; 80053; 82728; 83540; 83550; 85025; 86850; 86900; 86901; 94760; 96365; 96376; C9113; J1815; J1940; J2250; J2704; J3490; P9016; P9059

== ENCOUNTER 2023-02-03 13:54 | Emergency (ER) | payer OTHER, MEDICAID ==
[2023-02-03 15:47] LABS: #Eosinphils 0.2 thou/uL (0.0-0.7); #Monocytes 0.7 thou/uL (0.11-0.59); #Neutrophils 5.6 thou/uL (1.40-6.50); %Basophils 0.4 % (0.0-1.0); %Lymphocytes 7.4 % (21.0-51.0); %Monocytes 9.6 % (0.0-10.0); %Neutrophils 79.3 % (42.0-75.0); Hematocrit 42.4 % (42.0-52.0); Hemoglobin 12.2 g/dL (14.0-18.0); Mean Corpuscular HGB CONC 28.8 g/dL (32.0-36.0); Mean Corpuscular Hemoglobin 21.8 pg (27.0-31.0); Mean Corpuscular Volume 75.8 fl (78.0-98.0); Mean Platelet Volume 9.9 fL (7.4-10.4); Platelet Count 228 10x3/uL (130-400); RBC Distribution Width 16.3 % (11.5-14.5); Red Blood Cell (RBC) Count 5.59 mill/uL (4.70-6.10); White Blood Cell (WBC) Count 7.1 10x3/uL (4.8-10.8)
[2023-02-03 16:06] LABS: ALT (SGPT) 23 U/L (8-55); AST (SGOT) 21 U/L (5-34); Albumin 3.3 g/dL (3.4-4.8); Alkaline Phosphatase 82 U/L (40-110); Anion Gap 13 mmol/L (10-20); BUN (Urea Nitrogen) 16 mg/dL (8.4-25.7); Bilirubin, Total 0.5 mg/dL (0.2-1.2); Calc. Creatinine Clearance 0 mL/min (70-130); Calcium 8.7 mg/dL (7.8-10.44); Carbon Dioxide 23 mmol/L (23-31); Chloride 103 mmol/L (98-107); Estimated GFR 66; Globulin 3.8 g/dL (2.4-3.5); Glucose 112 mg/dL (83-110); Lipase 8 U/L (8-78); Potassium 3.4 mmol/L (3.5-5.1); Protein, Total 7.1 g/dL (5.8-8.1); Sodium 136 mmol/L (136-145)
[2023-02-03] MEDS ORDERED: Morphine 4 MG/ML VIAL ONE (16:08)
[2023-02-03 16:12] LABS: Anisocytosis SLIGHT = 6-15 cells HPF (0-5); CellaVision Operator ID LAB.KB; Hypochromia SLIGHT = 6-15 cells HPF (0-5); Microcytosis SLIGHT = 6-15 cells HPF (0-5); Platelet Adequacy Comment Platelets Normal; Polychromasia SLIGHT = 2-3 cells HPF (0-2); Target Cells SLIGHT = 2-5 cells HPF (0-1)
[2023-02-03 17:00] LABS: Bacteria/HPF 4+ HPF (None Seen); Bilirubin Negative (Negative); Blood, Urine 1+ (Negative); CAUTI Indications for Culture Dysuria,urgency,freq; Clarity Turbid (Clear); Glucose, Urine (Dipstick) Greater than 1000 mg/dL (Negative); Ketone, Urine Negative (Negative); Leukocyte 500 Leu/uL (Negative); Nitrite Negative (Negative); Protein, Urine (Dipstick) 20 mg/dL (Neg-Trace); Specific Gravity, Urine 1.007 (1.002-1.036); Squamous Epithelial 0-3 HPF (0-3); Urobilinogen Normal mg/dL (Less than 2); WBC/HPF 21-50 HPF (0-3)
[2023-02-03 17:04] LABS: Urine Culture Reflex Yes Yes
== END 2023-02-03 17:57 | disposition home or self-care (01) ==
LOC: ERS 13:54
DX: M54.50 Low back pain, unspecified (principal); J15.9 Unspecified bacterial pneumonia; N39.0 Urinary tract infection, site not specified; J90 Pleural effusion, not elsewhere classified; R16.0 Hepatomegaly, not elsewhere classified; E11.9 Type 2 diabetes mellitus without complications; I10 Essential (primary) hypertension; E78.5 Hyperlipidemia, unspecified; F17.210 Nicotine dependence, cigarettes, uncomplicated
CPT/HCPCS: 36415; 71045; 74176; 80053; 81001; 83690; 85025; 87077; 87086; 87186; 93005; 96374; J2270

== ENCOUNTER 2023-03-21 07:49 | Outpatient (CLI) | payer OTHER, MEDICAID ==
[2023-03-21] MEDS ORDERED: Iopamidol 370 76% 100 ML VIAL ONE (10:45)
== END 2023-03-21 07:50 | disposition home or self-care (01) ==
LOC: BICCT 07:49
PROVIDERS: ATTEND Student in an Organized Health Care Education/Training Program
DX: J90 Pleural effusion, not elsewhere classified (principal); K76.9 Liver disease, unspecified; J94.8 Other specified pleural conditions; E27.8 Other specified disorders of adrenal gland; R59.0 Localized enlarged lymph nodes; R16.0 Hepatomegaly, not elsewhere classified; R91.8 Other nonspecific abnormal finding of lung field
CPT/HCPCS: 71260; 82565; Q9967

== ENCOUNTER 2023-04-08 08:10 | Inpatient (IN) | payer OTHER, MEDICAID ==
[2023-04-08 08:46] LABS: #Eosinphils 0.1 thou/uL (0.0-0.7); #Monocytes 0.5 thou/uL (0.11-0.59); #Neutrophils 6.8 thou/uL (1.40-6.50); %Basophils 0.2 % (0.0-1.0); %Eosinophils 1.7 % (0.0-10.0); %Lymphocytes 8.3 % (21.0-51.0); %Monocytes 6.3 % (0.0-10.0); %Neutrophils 82.8 % (42.0-75.0); Hematocrit 30.8 % (42.0-52.0); Hemoglobin 8.4 g/dL (14.0-18.0); Mean Corpuscular HGB CONC 27.3 g/dL (32.0-36.0); Mean Corpuscular Hemoglobin 20.3 pg (27.0-31.0); Mean Corpuscular Volume 74.4 fl (78.0-98.0); Mean Platelet Volume 10.3 fL (7.4-10.4); Platelet Count 290 10x3/uL (130-400); RBC Distribution Width 18.4 % (11.5-14.5); Red Blood Cell (RBC) Count 4.14 mill/uL (4.70-6.10); White Blood Cell (WBC) Count 8.2 10x3/uL (4.8-10.8)
[2023-04-08 09:02] LABS: Delete Auto Diff?? NO
[2023-04-08 09:28] LABS: ALT (SGPT) 9 U/L (8-55); AST (SGOT) 16 U/L (5-34); Albumin 3.1 g/dL (3.4-4.8); Alkaline Phosphatase 81 U/L (40-110); Anion Gap 15 mmol/L (10-20); BUN (Urea Nitrogen) 13 mg/dL (8.4-25.7); Bilirubin, Total 0.7 mg/dL (0.2-1.2); Calc. Creatinine Clearance 0 mL/min (70-130); Calcium 8.4 mg/dL (7.8-10.44); Carbon Dioxide 23 mmol/L (23-31); Chloride 103 mmol/L (98-107); Estimated GFR 74; Globulin 3.8 g/dL (2.4-3.5); Glucose 134 mg/dL (83-110); Lipase 5 U/L (8-78); Potassium 3.3 mmol/L (3.5-5.1); Protein, Total 6.9 g/dL (5.8-8.1); Sodium 138 mmol/L (136-145)
[2023-04-08 09:30] LABS: Troponin I 0.146 ng/mL (< 0.028)
[2023-04-08] MEDS ORDERED: Ondansetron PF 4 MG/2 ML Vial ONE (10:16)
[2023-04-08] MEDS ORDERED: Morphine 4 MG/ML VIAL ONE (10:16)
[2023-04-08] MEDS ORDERED: Furosemide 20 MG/2 ML VIAL ONE (11:23)
[2023-04-08] MEDS ORDERED: Furosemide 40 MG/4 ML VIAL ONE (11:24)
[2023-04-08] MEDS ORDERED: Acetaminophen 325 MG TAB PO PRN ×2 (12:52→14:56)
[2023-04-08] MEDS ORDERED: Nicotine 21 MG PATCH TD SCH (13:00)
[2023-04-08] MEDS ORDERED: Iopamidol-370 76% 500 ML MDV (1 ML CHARGE) ONE (13:40)
[2023-04-08] MEDS ORDERED: Dextrose 5% in Water 1,000 ML IV PRN (13:43)
[2023-04-08] MEDS ORDERED: Glucagon 1 MG/ML KIT IM PRN (13:43)
[2023-04-08] MEDS ORDERED: Dextrose 50% Abboject 50 ML SYRINGE SLOW IVP PRN (13:43)
[2023-04-08] MEDS ORDERED: HumaLOG 300 UNITS/3 ML VIAL SC PRN ×2 (13:43)
[2023-04-08 14:25] VITALS: BMI 21.5
[2023-04-08] MEDS ORDERED: FLU VACC QS2023(65UP)/MF59C/PF 60 MCG/0.5 ML SYRINGE IM ONE (14:45)
[2023-04-08] MEDS ORDERED: Polyethylene Glycol 3350 17 GM Packet PO PRN (14:54)
[2023-04-08] MEDS ORDERED: Albuterol 200 PUFF (6.7GM INHALER) INH PRN (15:00)
[2023-04-08] MEDS ORDERED: Potassium Chloride 20 MEQ TAB PO SCH (15:00)
[2023-04-08 16:23] LABS: Troponin I 0.156 ng/mL (< 0.028)
[2023-04-08] MEDS: Carvedilol 3.125 MG TAB PO SCH (17:36)
[2023-04-08] MEDS: Nicotine 21 MG PATCH TD SCH (17:39)
[2023-04-08 19:40] LABS: Troponin I 0.174 ng/mL (< 0.028)
[2023-04-08 19:52] LABS: Pleural Fluid, Protein 3.6 g/dL
[2023-04-08] MEDS: HYDROcodone/Acetaminophen 10/325 mg Tablet PO PRN (20:33)
[2023-04-08] MEDS: Furosemide 40 MG TAB PO SCH (20:33)
[2023-04-08] MEDS ORDERED: Atorvastatin Calcium 10 MG TAB PO SCH (21:00)
[2023-04-08] MEDS ORDERED: EZETIMIBE PO SCH (21:00)
[2023-04-08] MEDS ORDERED: [UNRECOGNIZED DRUG - OTHER] PO SCH (21:00)
[2023-04-08] MEDS ORDERED: SIMVASTATIN PO SCH (21:00)
[2023-04-08 21:01] LABS: RBC Count-Automated (BF) 1247 /cu.mm; WBC/Nucleated-Auto (BF) 169 /cu.mm
[2023-04-08 21:35] LABS: BF Color Yellow; Body Fluid Source Thoracentesis Fluid; Clarity Clear (Clear); Tube # EDTA
[2023-04-08 21:38] LABS: BF Segmented Neutrophils 8 %; Cell Count Non Hematic 20 %; Lymphocytes 72 %
[2023-04-09 05:51] LABS: #Eosinphils 0.2 thou/uL (0.0-0.7); #Monocytes 0.7 thou/uL (0.11-0.59); %Basophils 0.3 % (0.0-1.0); %Eosinophils 2.3 % (0.0-10.0); %Lymphocytes 10.2 % (21.0-51.0); %Monocytes 11.1 % (0.0-10.0); %Neutrophils 75.5 % (42.0-75.0); Hematocrit 28.3 % (42.0-52.0); Hemoglobin 7.8 g/dL (14.0-18.0); Mean Corpuscular HGB CONC 27.6 g/dL (32.0-36.0); Mean Corpuscular Hemoglobin 20.6 pg (27.0-31.0); Mean Corpuscular Volume 74.9 fl (78.0-98.0); Mean Platelet Volume 10.4 fL (7.4-10.4); Platelet Count 288 10x3/uL (130-400); RBC Distribution Width 18.3 % (11.5-14.5); Red Blood Cell (RBC) Count 3.78 mill/uL (4.70-6.10); White Blood Cell (WBC) Count 6.6 10x3/uL (4.8-10.8)
[2023-04-09 06:15] LABS: Anion Gap 13 mmol/L (10-20); BUN (Urea Nitrogen) 17 mg/dL (8.4-25.7); Calc. Creatinine Clearance 41 mL/min (70-130); Carbon Dioxide 28 mmol/L (23-31); Chloride 102 mmol/L (98-107); Estimated GFR 53; Glucose 158 mg/dL (83-110); Sodium 140 mmol/L (136-145)
[2023-04-09 06:25] LABS: Anisocytosis MODERATE=16-30 cells HPF (0-5); CellaVision Operator ID lab.sh2; Hypochromia SLIGHT = 6-15 cells HPF (0-5); Microcytosis SLIGHT = 6-15 cells HPF (0-5); Platelet Adequacy Comment Platelets Normal; Polychromasia MODERATE = 3-4 cells HPF (0-2); Target Cells MODERATE= 6-15 cells HPF (0-1); Tear Drops SLIGHT = 2-5 cells HPF (0-1)
[2023-04-09] MEDS: Ferrous Sulfate 325 MG TAB PO SCH (08:43)
[2023-04-09] MEDS: Furosemide 40 MG TAB PO SCH (08:43)
[2023-04-09] MEDS: Losartan 25 MG TAB PO SCH (08:43)
[2023-04-09] MEDS: Carvedilol 3.125 MG TAB PO SCH ×2 (08:43→17:12)
[2023-04-09] MEDS: Aspirin 81 mg Enteric Coated Tablet PO SCH (08:43)
[2023-04-09] MEDS: Empagliflozin 10 MG TAB PO SCH (08:44)
[2023-04-09] MEDS: Atorvastatin Calcium 20 MG TAB PO SCH (08:44)
[2023-04-09] MEDS: Ezetimibe 10 MG TAB PO SCH (08:44)
[2023-04-09] MEDS: Spironolactone 25 MG TAB PO SCH (08:44)
[2023-04-09] MEDS ORDERED: Lactated Ringer's 500 ML IV SCH (11:00)
[2023-04-09] MEDS ORDERED: Potassium Chloride 20 MEQ TAB PO SCH (11:00)
[2023-04-09] MEDS ORDERED: Lactated Ringer's 1,000 ML IV SCH (12:30)
[2023-04-09] MEDS: HYDROcodone/Acetaminophen 10/325 mg Tablet PO PRN (15:59)
[2023-04-09] MEDS: Nicotine 21 MG PATCH TD SCH (17:12)
[2023-04-09 17:45] LABS: Anion Gap 15 mmol/L (10-20); BUN (Urea Nitrogen) 19 mg/dL (8.4-25.7); Calc. Creatinine Clearance 42 mL/min (70-130); Calcium 8.3 mg/dL (7.8-10.44); Carbon Dioxide 25 mmol/L (23-31); Chloride 99 mmol/L (98-107); Estimated GFR 55; Glucose 127 mg/dL (83-110); Potassium 3.6 mmol/L (3.5-5.1); Sodium 135 mmol/L (136-145)
[2023-04-10 05:35] LABS: #Eosinphils 0.1 thou/uL (0.0-0.7); #Monocytes 0.7 thou/uL (0.11-0.59); #Neutrophils 6.5 thou/uL (1.40-6.50); %Basophils 0.3 % (0.0-1.0); %Eosinophils 1.3 % (0.0-10.0); %Lymphocytes 7.6 % (21.0-51.0); %Monocytes 8.9 % (0.0-10.0); %Neutrophils 81.1 % (42.0-75.0); Hematocrit 26.3 % (42.0-52.0); Hemoglobin 7.4 g/dL (14.0-18.0); Mean Corpuscular HGB CONC 28.1 g/dL (32.0-36.0); Mean Corpuscular Hemoglobin 20.4 pg (27.0-31.0); Mean Corpuscular Volume 72.5 fl (78.0-98.0); Mean Platelet Volume 10.4 fL (7.4-10.4); Platelet Count 308 10x3/uL (130-400); Red Blood Cell (RBC) Count 3.63 mill/uL (4.70-6.10)
[2023-04-10 05:54] LABS: Anion Gap 12 mmol/L (10-20); BUN (Urea Nitrogen) 16 mg/dL (8.4-25.7); Calc. Creatinine Clearance 53 mL/min (70-130); Calcium 8.2 mg/dL (7.8-10.44); Carbon Dioxide 27 mmol/L (23-31); Chloride 100 mmol/L (98-107); Estimated GFR 77; Glucose 136 mg/dL (83-110); Potassium 3.2 mmol/L (3.5-5.1); Sodium 136 mmol/L (136-145)
[2023-04-10] MEDS: Carvedilol 3.125 MG TAB PO SCH ×2 (08:58→17:19)
[2023-04-10] MEDS: Empagliflozin 10 MG TAB PO SCH (08:58)
[2023-04-10] MEDS: Atorvastatin Calcium 20 MG TAB PO SCH (08:58)
[2023-04-10] MEDS: Aspirin 81 mg Enteric Coated Tablet PO SCH (08:58)
[2023-04-10] MEDS: Spironolactone 25 MG TAB PO SCH (08:58)
[2023-04-10] MEDS: Losartan 25 MG TAB PO SCH (08:58)
[2023-04-10] MEDS: Ferrous Sulfate 325 MG TAB PO SCH (08:58)
[2023-04-10] MEDS: Ezetimibe 10 MG TAB PO SCH (08:59)
[2023-04-10] MEDS ORDERED: Potassium Chloride 20 MEQ TAB PO SCH (09:30)
[2023-04-10] MEDS: HYDROcodone/Acetaminophen 10/325 mg Tablet PO PRN (10:13)
[2023-04-10 16:55] LABS: Troponin I 0.146 ng/mL (< 0.028)
[2023-04-10] MEDS: Nicotine 21 MG PATCH TD SCH (17:20)
[2023-04-11 06:21] LABS: #Eosinphils 0.1 thou/uL (0.0-0.7); #Monocytes 0.8 thou/uL (0.11-0.59); #Neutrophils 5.6 thou/uL (1.40-6.50); %Basophils 0.3 % (0.0-1.0); %Eosinophils 1.5 % (0.0-10.0); %Lymphocytes 8.6 % (21.0-51.0); %Monocytes 10.6 % (0.0-10.0); %Neutrophils 78.4 % (42.0-75.0); Hematocrit 27.4 % (42.0-52.0); Hemoglobin 7.5 g/dL (14.0-18.0); Mean Corpuscular HGB CONC 27.4 g/dL (32.0-36.0); Mean Corpuscular Hemoglobin 20.2 pg (27.0-31.0); Mean Corpuscular Volume 73.9 fl (78.0-98.0); Mean Platelet Volume 10.2 fL (7.4-10.4); Platelet Count 305 10x3/uL (130-400); RBC Distribution Width 18.1 % (11.5-14.5); Red Blood Cell (RBC) Count 3.71 mill/uL (4.70-6.10); White Blood Cell (WBC) Count 7.2 10x3/uL (4.8-10.8)
[2023-04-11 06:43] LABS: Anion Gap 13 mmol/L (10-20); BUN (Urea Nitrogen) 17 mg/dL (8.4-25.7); Calc. Creatinine Clearance 54 mL/min (70-130); Calcium 8.2 mg/dL (7.8-10.44); Carbon Dioxide 25 mmol/L (23-31); Chloride 103 mmol/L (98-107); Estimated GFR 77; Glucose 129 mg/dL (83-110); Potassium 3.7 mmol/L (3.5-5.1); Sodium 137 mmol/L (136-145)
[2023-04-11 08:06] LABS: CellaVision Operator ID LAB.GE; Hypochromia MODERATE=16-30 cells HPF (0-5); Large Platelets 12.2 % (0-5); Microcytosis SLIGHT = 6-15 cells HPF (0-5); Platelet Adequacy Comment Platelets Normal; Polychromasia MODERATE = 3-4 cells HPF (0-2); Target Cells SLIGHT = 2-5 cells HPF (0-1)
[2023-04-11] MEDS: Empagliflozin 10 MG TAB PO SCH (08:44)
[2023-04-11] MEDS: Spironolactone 25 MG TAB PO SCH (08:45)
[2023-04-11] MEDS: Aspirin 81 mg Enteric Coated Tablet PO SCH (08:45)
[2023-04-11] MEDS: Ferrous Sulfate 325 MG TAB PO SCH (08:45)
[2023-04-11] MEDS: Carvedilol 3.125 MG TAB PO SCH ×2 (08:46→18:40)
[2023-04-11] MEDS: Ezetimibe 10 MG TAB PO SCH (08:47)
[2023-04-11] MEDS: Losartan 25 MG TAB PO SCH (09:09)
[2023-04-11] MEDS ORDERED: Carvedilol 3.125 MG TAB PO SCH (09:30)
[2023-04-11] MEDS: Atorvastatin Calcium 20 MG TAB PO SCH (10:30)
[2023-04-11] MEDS ORDERED: hydrALAZINE 20 MG/ML VIAL SLOW IVP PRN (14:18)
[2023-04-11] MEDS ORDERED: Iopamidol-370 76% 500 ML MDV (1 ML CHARGE) ONE (14:31)
[2023-04-11] MEDS: Nicotine 21 MG PATCH TD SCH (18:40)
[2023-04-12 01:26] LABS: Hematocrit 29.1 % (42.0-52.0); Hemoglobin 8.3 g/dL (14.0-18.0)
[2023-04-12] MEDS ORDERED: Losartan 25 MG TAB PO SCH ×2 (09:30→10:02)
[2023-04-12] MEDS ORDERED: Amlodipine 5 MG TAB PO SCH (09:30)
[2023-04-12] MEDS: Losartan 25 MG TAB PO SCH (11:08)
[2023-04-12] MEDS: Aspirin 81 mg Enteric Coated Tablet PO SCH (11:09)
[2023-04-12] MEDS: Empagliflozin 10 MG TAB PO SCH (11:09)
[2023-04-12] MEDS: Ezetimibe 10 MG TAB PO SCH (11:09)
[2023-04-12] MEDS: Ferrous Sulfate 325 MG TAB PO SCH (11:10)
[2023-04-12] MEDS: Carvedilol 3.125 MG TAB PO SCH ×2 (11:10→18:19)
[2023-04-12] MEDS: Spironolactone 25 MG TAB PO SCH (11:10)
[2023-04-12] MEDS: Atorvastatin Calcium 20 MG TAB PO SCH (11:10)
[2023-04-12 12:17] VITALS: TEMP 97.3
[2023-04-12 12:50] LABS: #Eosinphils 0.1 thou/uL (0.0-0.7); #Monocytes 0.8 thou/uL (0.11-0.59); #Neutrophils 6.2 thou/uL (1.40-6.50); %Basophils 0.4 % (0.0-1.0); %Eosinophils 1.2 % (0.0-10.0); %Lymphocytes 7.4 % (21.0-51.0); %Monocytes 10.9 % (0.0-10.0); %Neutrophils 79.5 % (42.0-75.0); Hematocrit 31.1 % (42.0-52.0); Mean Corpuscular HGB CONC 28.9 g/dL (32.0-36.0); Mean Corpuscular Hemoglobin 20.9 pg (27.0-31.0); Mean Corpuscular Volume 72.2 fl (78.0-98.0); Platelet Count 337 10x3/uL (130-400); RBC Distribution Width 18.4 % (11.5-14.5); Red Blood Cell (RBC) Count 4.31 mill/uL (4.70-6.10); White Blood Cell (WBC) Count 7.7 10x3/uL (4.8-10.8)
[2023-04-12 13:07] LABS: Anion Gap 11 mmol/L (10-20); BUN (Urea Nitrogen) 13 mg/dL (8.4-25.7); Calc. Creatinine Clearance 62 mL/min (70-130); Calcium 8.3 mg/dL (7.8-10.44); Carbon Dioxide 24 mmol/L (23-31); Chloride 104 mmol/L (98-107); Estimated GFR 86; Glucose 206 mg/dL (83-110); Potassium 3.5 mmol/L (3.5-5.1); Sodium 135 mmol/L (136-145)
[2023-04-12 13:26] LABS: Anisocytosis SLIGHT = 6-15 cells HPF (0-5); CellaVision Operator ID LAB.KB; Hypochromia SLIGHT = 6-15 cells HPF (0-5); Microcytosis SLIGHT = 6-15 cells HPF (0-5); Platelet Adequacy Comment Platelets Normal; Polychromasia SLIGHT = 2-3 cells HPF (0-2); Target Cells SLIGHT = 2-5 cells HPF (0-1)
[2023-04-12 15:32] VITALS: BP 155/70
[2023-04-12] MEDS: Nicotine 21 MG PATCH TD SCH (18:19)
[2023-04-13] MEDS ORDERED: Losartan 25 MG TAB PO SCH (09:00)
[2023-04-13] MEDS ORDERED: Amlodipine 5 MG TAB PO SCH (09:00)
[2023-04-13 16:14] LABS: QuantiFERON-TB Gold Plus Negative (Negative)
== END 2023-04-12 18:30 | disposition home or self-care (01) | DRG 291 ==
LOC: ERS 08:10 → 2SW 14:18 → OBSVTOIN 04-09 11:11 → 2SW 04-10 12:12
PROVIDERS: ADMIT Family Medicine; ATTEND Family Medicine
PROC: 0W993ZZ Drainage of Right Pleural Cavity, Percutaneous Approach (ICD-10-PCS; principal; 2023-04-08)
PROC: 30233N1 Transfusion of Nonautologous Red Blood Cells into Peripheral Vein, Percutaneous Approach (ICD-10-PCS; 2023-04-11)
DX: I11.0 Hypertensive heart disease with heart failure (principal); I50.23 Acute on chronic systolic (congestive) heart failure; J90 Pleural effusion, not elsewhere classified; N17.9 Acute kidney failure, unspecified; R64 Cachexia; I42.9 Cardiomyopathy, unspecified; E11.40 Type 2 diabetes mellitus with diabetic neuropathy, unspecified; J44.9 Chronic obstructive pulmonary disease, unspecified; E78.5 Hyperlipidemia, unspecified; F17.210 Nicotine dependence, cigarettes, uncomplicated; I25.10 Atherosclerotic heart disease of native coronary artery without angina pectoris; Z95.5 Presence of coronary angioplasty implant and graft; D50.9 Iron deficiency anemia, unspecified; Z88.7 Allergy status to serum and vaccine; Z79.82 Long term (current) use of aspirin; Z79.899 Other long term (current) drug therapy; R16.0 Hepatomegaly, not elsewhere classified; E87.6 Hypokalemia; I25.2 Old myocardial infarction; D64.9 Anemia, unspecified; G89.29 Other chronic pain; M54.9 Dorsalgia, unspecified; Z68.20 Body mass index [BMI] 20.0-20.9, adult
CPT/HCPCS: 36415; 36416; 36430; 70470; 71045; 74177; 80048; 80053; 82150; 82378; 82945; 83615; 83690; 83880; 84145; 84157; 84484; 85025; 85060; 86301; 86480; 86850; 86900; 86901; 87070; 87102; 87116; 87205; 87206; 88112; 88305; 89051; 93005; 93306; 96372; 96374; 96375; 97139; G0378; J0360; J1650; J1815; J1940; J2270; J2405; J7120; P9016; Q9967

== ENCOUNTER 2023-05-11 08:14 | Day surgery (SDC) | payer OTHER, MEDICAID ==
[2023-05-11] MEDS ORDERED: fentaNYL 50 mcg/mL 1 mL Vial ONE (08:16)
[2023-05-11] MEDS ORDERED: Midazolam HCl 2 mg/2 ml Vial ONE (08:16)
[2023-05-11] MEDS ORDERED: Lidocaine 1% w/Epinephrine 1:100K 20 ML VIAL ONE (08:16)
[2023-05-11] MEDS ORDERED: Lidocaine 1% PF 5 ML VIAL ONE (08:16)
[2023-05-11] MEDS ORDERED: Sodium Bicarbonate 0.5 MEQ/ML SDV 10 ML ONE (08:16)
[2023-05-11 09:03] LABS: INR-International Normal Ratio 1.2; Prothrombin Time 16.1 sec (12.0-14.7)
[2023-05-11 10:29] VITALS: BP 162/84; TEMP 98.4
[2023-05-11] MEDS ORDERED: FLU VACC QS2023(65UP)/MF59C/PF 60 MCG/0.5 ML SYRINGE IM ONE (11:00)
== END 2023-05-11 13:10 | disposition home or self-care (01) ==
LOC: ULT 08:14
PROVIDERS: ATTEND Internal Medicine
PROC: 0FB13ZX Excision of Right Lobe Liver, Percutaneous Approach, Diagnostic (ICD-10-PCS; principal; 2023-05-11)
DX: C34.31 Malignant neoplasm of lower lobe, right bronchus or lung (principal); K76.89 Other specified diseases of liver; E11.9 Type 2 diabetes mellitus without complications; M06.9 Rheumatoid arthritis, unspecified; E78.2 Mixed hyperlipidemia; I10 Essential (primary) hypertension; Z88.7 Allergy status to serum and vaccine; Z79.82 Long term (current) use of aspirin; Z79.899 Other long term (current) drug therapy
CPT/HCPCS: 47000; 76942; 85610; 85730; 88333; 88334; J3010; 88307; 88313; J2250

== ENCOUNTER 2023-06-07 10:20 | Outpatient (CLI) | payer OTHER, MEDICAID ==
[~2023-06-07 10:20] MED LIST changes: -Acetaminophen 500 MG TAB PO SCH; +Iopamidol-370 76% 500 ML MDV (1 ML CHARGE) ONE; -Iron Sucrose Complex 500 MG in Sodium Chloride 0.9% 250 ML 250 ML IVPB SCH
== END 2023-06-07 10:21 | disposition home or self-care (01) ==
LOC: BICCT 10:20
PROVIDERS: ATTEND Internal Medicine
DX: C22.0 Liver cell carcinoma (principal); J90 Pleural effusion, not elsewhere classified; J98.4 Other disorders of lung; R18.8 Other ascites; J81.1 Chronic pulmonary edema; C78.7 Secondary malignant neoplasm of liver and intrahepatic bile duct; R91.8 Other nonspecific abnormal finding of lung field; K76.9 Liver disease, unspecified; E27.8 Other specified disorders of adrenal gland; R59.0 Localized enlarged lymph nodes
CPT/HCPCS: 71260; 74177